=== PATIENT | female | born 1980 | race Caucasian/White ===

== ENCOUNTER 2018-10-11 13:12 | Emergency (ER) | payer OTHER | END 2018-10-11 13:30 | disposition home or self-care (01) | LOC: SCSER 13:12 | DX: Z04.3 Encounter for examination and observation following other accident (principal); E78.5 Hyperlipidemia, unspecified; E78.00 Pure hypercholesterolemia, unspecified; I10 Essential (primary) hypertension; F41.0 Panic disorder [episodic paroxysmal anxiety]; F32.9 Major depressive disorder, single episode, unspecified | CPT/HCPCS: 99282 ==

== ENCOUNTER 2019-03-19 10:31 | Emergency (ER) | payer BC ==
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
== END 2019-03-19 12:04 | disposition home or self-care (01) ==
LOC: ERS 10:31
DX: S00.83XA Contusion of other part of head, initial encounter (principal); E78.5 Hyperlipidemia, unspecified; I10 Essential (primary) hypertension; F41.9 Anxiety disorder, unspecified; F32.9 Major depressive disorder, single episode, unspecified; W55.12XA Struck by horse, initial encounter
CPT/HCPCS: 70450; 70486; 72125